=== PATIENT | female | born 1995 | race Hispanic/Latino ===

== ENCOUNTER 2017-01-17 11:13 | Emergency (ER) | payer SELFPAY ==
[2017-01-17] MEDS ORDERED: Ketorolac Tromethamine 30 MG/ML VIAL ONE (12:04)
== END 2017-01-17 12:33 | disposition home or self-care (01) ==
LOC: ERS 11:13
DX: M62.830 Muscle spasm of back (principal); V89.2XXA Person injured in unspecified motor-vehicle accident, traffic, initial encounter
CPT/HCPCS: 96372; J1885